=== PATIENT | female | born 2000 | race Caucasian/White ===

== ENCOUNTER 2023-03-25 12:54 | Outpatient (RCR) | payer BC, SELFPAY | END 2023-06-09 14:00 | disposition home or self-care (01) | PROVIDERS: PCP Family Medicine; Visit Provider Family Medicine | DX: M25.532 Pain in left wrist (principal); Z51.89 Encounter for other specified aftercare | CPT/HCPCS: 97033; 97110; 97165; X5282 ==

== ENCOUNTER 2023-05-19 16:59 | Outpatient (CLI) | payer BC, SELFPAY ==
--- NOTE | 2023-05-19 17:00 | US_ITS ---
Patient: ALVARO RIVERA Facility:?[facility] Patient ID:?[id number] Site Patient ID:?[id number]. Site :?[id number] Study:?US-OB Pelvis Pelvic TA/TV-05/19/2023 6:03:38 PM Ordering Physician:Pablo May Final Report: INDICATION: PID, pelvic pain, dyspareunia. TECHNIQUE: Transabdominal and transvaginal pelvic ultrasound with grayscale and duplex Doppler images. FINDINGS: Uterus is anteverted and measures 7.6 x 2.7 x 5.3 cm. Endometrial stripe thickness is 3 mm. There is an IUD that appears appropriately positioned within the uterus. Both ovaries appear normal and have normal color and spectral Doppler flow. No adnexal mass or free fluid. IMPRESSION: 1. IUD appears appropriately positioned. 2. Normal pelvic ultrasound. Dictated by Gary Moralez MD @ 05/20/2023 12:08:58 PM Signed by:?Gary Moralez MD @05/20/2023 12:08:58 PM (Electronic Signature)
== END 2023-05-19 17:00 | disposition home or self-care (01) ==
PROVIDERS: Visit Provider Physician Assistant
DX: R10.2 Pelvic and perineal pain (principal); N94.10 Unspecified dyspareunia
CPT/HCPCS: 76830; 76856; 93976